=== PATIENT | female | born 1960 | race Hispanic/Latino ===

== ENCOUNTER 2021-07-15 11:37 | Inpatient (IN) | payer OTHER, MEDICARE ==
[~2021-07-15] VITALS: Ht 152.4 cm; Wt 68.9 kg
[2021-07-15] MEDS ORDERED: ZOSYN 3.375GM+NS 50ML 50 ML IV STA (11:40)
[2021-07-15] MEDS ORDERED: VANCOMYCIN 1G VIAL IVPB ONE (12:00)
[2021-07-15] MEDS ORDERED: 0.9%NACL 1000ML 1,000 ML IV ONE ×2 (12:00→13:08)
[2021-07-15 12:39] LABS: BASOPHILS % (AUTO) 0.3 % (0.0-5.0); EOSINOPHILS % (AUTO) 0.9 % (0.0-8.0); HEMATOCRIT 40.3 % (36-48); LYMPHOCYTES % (AUTO) 8.8 % (21.0-51.0); MEAN CORPUSCULAR HEMOGLOBIN 30.4 pg (27.0-33.0); MEAN CORPUSCULAR HGB CONC 33.7 g/dL (32.0-36.0); MONOCYTES % (AUTO) 5.6 % (3.0-13.0); PLATELET COUNT (AUTO) 187 K/uL (130-400); RED BLOOD CELL COUNT(AUTO) 4.48 MIL/uL (4.00-5.50); WHITE BLOOD COUNT (AUTO) 14.2 K/uL (4.8-10.8)
[2021-07-15 13:02] LABS: CREATININE 0.7 mg/dL (0.5-1.5); POTASSIUM 4.9 mmol/L (3.5-5.1)
[2021-07-15 13:07] LABS: ALBUMIN 3.4 g/dL (3.5-5.0); BILIRUBIN,TOTAL 0.4 mg/dL (0.2-1.0); TOTAL PROTEIN, SERUM 7.1 g/dL (6.0-8.3)
[2021-07-15] MEDS ORDERED: ZOSYN 3.375GM+NS 50ML 50 ML ONE (13:07)
[2021-07-15] MEDS ORDERED: 0.9%NACL 50ML 50 ML IV ONE (13:08)
[2021-07-15] MEDS ORDERED: ACETAMINOPHEN 325 MG TAB PO PRN (15:30)
[2021-07-15] MEDS ORDERED: HYDRALAZINE 20MG/ML VIAL IV PRN (15:30)
[2021-07-15] MEDS ORDERED: VANCOMYCIN PROTOCOL PER PHARMACY IV PRN (15:30)
[2021-07-15] MEDS ORDERED: ONDANSETRON 4MG INJ IV PRN (15:30)
[2021-07-15] MEDS: ACETAMINOPHEN 325 MG TAB PO PRN (16:57)
[2021-07-15] MEDS ORDERED: 0.9%NACL 100ML 100 ML ONE (17:01)
[2021-07-15] MEDS: 0.9%NACL 1000ML 1,000 ML IV SCH (17:27)
[2021-07-15] MEDS: CEFEPIME HCL 2 GM VIAL IVP SCH ×2 (17:28→23:02)
[2021-07-15] MEDS: INSULIN HUMULIN R 100 UNIT/ML 3ML SQ SCH ×2 (20:03→21:00)
[2021-07-15] MEDS: VANCOMYCIN 1G/250ML KIT 250 ML IV SCH (21:12)
[2021-07-15] MEDS: PANTOPRAZOLE 40 MG/VIAL IVP SCH (21:18)
[2021-07-15] MEDS ORDERED: INSU100I13 SQ ×2 (21:45→21:48)
[2021-07-15] MEDS ORDERED: GABA-529 PO (21:50)
[2021-07-15] MEDS ORDERED: SITA1TAB6 PO (21:50)
[2021-07-15] MEDS ORDERED: OMEP20CA12 PO (21:55)
[2021-07-15] MEDS ORDERED: CYCL-309 PO (21:55)
[2021-07-15] MEDS ORDERED: OXYB5TAB15 PO (21:55)
[2021-07-15] MEDS ORDERED: DULO30CA52 PO (21:58)
[2021-07-15] MEDS ORDERED: LISI20TA24 PO (22:03)
[2021-07-15] MEDS ORDERED: ATOR20TA65 PO (22:03)
[2021-07-15] MEDS: METRONIDAZOLE 500MG/100ML BAG 100 ML IVPB SCH (23:12)
[2021-07-16] VITALS (7 sets, daily range): BP systolic 126–148; BP diastolic 51–70
[2021-07-16] MEDS: ACETAMINOPHEN 325 MG TAB PO PRN ×2 (03:28→11:37)
[2021-07-16] MEDS: 0.9%NACL 1000ML 1,000 ML IV SCH ×2 (05:59→16:35)
[2021-07-16] MEDS: METRONIDAZOLE 500MG/100ML BAG 100 ML IVPB SCH ×3 (05:59→22:13)
[2021-07-16] MEDS: CEFEPIME HCL 2 GM VIAL IVP SCH ×3 (06:02→22:16)
[2021-07-16 06:08] LABS: APPEARANCE,URINE Clear (CLEAR); BILIRUBIN,URINE Negative (NEGATIVE); COLOR,URINE Yellow (YELLOW); GLUCOSE, URINE (UA) Negative (NEGATIVE); KETONES,URINE Negative (NEGATIVE); LEUKOCYTE ESTERASE ,URINE Negative (NEGATIVE); NITRATE,URINE Negative (NEGATIVE); OCCULT BLOOD,URINE Negative (NEGATIVE); PH,URINE 5.5 (5.0-8.0); PROTEIN,URINE Negative (NEGATIVE); UROBILINOGEN,URINE 0.2 mg/dL (0.2-1.0)
[2021-07-16 06:37] LABS: BASOPHILS % (AUTO) 0.3 % (0.0-5.0); EOSINOPHILS % (AUTO) 1.6 % (0.0-8.0); HEMATOCRIT 35.8 % (36-48); LYMPHOCYTES % (AUTO) 17.4 % (21.0-51.0); MEAN CORPUSCULAR HEMOGLOBIN 30.7 pg (27.0-33.0); MEAN CORPUSCULAR HGB CONC 33.2 g/dL (32.0-36.0); MEAN CORPUSCULAR VOLUME 92.3 fL (79-99); NEUTROPHILS % (AUTO) 72.4 % (40.0-77.0); PLATELET COUNT (AUTO) 173 K/uL (130-400); RED BLOOD CELL COUNT(AUTO) 3.88 MIL/uL (4.00-5.50); RED CELL DISTRIBUTION WIDTH 12.1 % (11.0-15.5); WHITE BLOOD COUNT (AUTO) 9.3 K/uL (4.8-10.8)
[2021-07-16 06:44] LABS: CREATININE 0.6 mg/dL (0.5-1.5); POTASSIUM 3.8 mmol/L (3.5-5.1)
[2021-07-16] MEDS: INSULIN HUMULIN R 100 UNIT/ML 3ML SQ SCH ×4 (06:47→22:03)
[2021-07-16] MEDS: VANCOMYCIN 1G/250ML KIT 250 ML IV SCH ×2 (08:45→20:36)
[2021-07-16] MEDS: PANTOPRAZOLE 40 MG/VIAL IVP SCH (08:45)
[2021-07-16] MEDS: ENOXAPARIN SODIUM 40 MG/0.4 ML SYRINGE SQ SCH (08:46)
[2021-07-16] MEDS ORDERED: CYCLOBENZAPRINE HCL 10 MG TABLET PO PRN (09:30)
[2021-07-16] MEDS: ATORVASTATIN 20 MG TABLET PO SCH (11:37)
[2021-07-16] MEDS: NEOMY SULF/BACITRA/POLYMYXIN B 1 EACH PACKET TP SCH (13:00)
[2021-07-16] MEDS: GABAPENTIN 100 MG CAPSULE PO SCH ×2 (14:26→20:35)
[2021-07-16] MEDS ORDERED: 0.9% NACL 250ML 250 ML ONE (20:32)
[2021-07-16] MEDS: DULOXETINE HCL 30 MG CAP PO SCH (20:36)
[2021-07-16] MEDS: LISINOPRIL 20 MG TABLET PO SCH (20:36)
[2021-07-16] MEDS: INSULIN GLARGINE 100 UNITS/ML 10 ML VIAL SQ SCH (22:04)
[2021-07-17 04:00] VITALS: BP 152/73
[2021-07-17] MEDS: METRONIDAZOLE 500MG/100ML BAG 100 ML IVPB SCH ×3 (05:26→23:07)
[2021-07-17] MEDS: 0.9%NACL 1000ML 1,000 ML IV SCH ×2 (05:58→20:13)
[2021-07-17] MEDS: INSULIN HUMULIN R 100 UNIT/ML 3ML SQ SCH ×4 (05:59→21:00)
[2021-07-17] MEDS: CEFEPIME HCL 2 GM VIAL IVP SCH ×3 (06:12→23:07)
[2021-07-17 07:49] LABS: BASOPHILS % (AUTO) 0.4 % (0.0-5.0); EOSINOPHILS % (AUTO) 2.1 % (0.0-8.0); HEMATOCRIT 34.9 % (36-48); MEAN CORPUSCULAR HGB CONC 33.2 g/dL (32.0-36.0); MEAN CORPUSCULAR VOLUME 90.2 fL (79-99); MONOCYTES % (AUTO) 6.7 % (3.0-13.0); NEUTROPHILS % (AUTO) 77.4 % (40.0-77.0); PLATELET COUNT (AUTO) 174 K/uL (130-400); RED BLOOD CELL COUNT(AUTO) 3.87 MIL/uL (4.00-5.50); RED CELL DISTRIBUTION WIDTH 11.9 % (11.0-15.5); WHITE BLOOD COUNT (AUTO) 6.8 K/uL (4.8-10.8)
[2021-07-17 07:57] LABS: CREATININE 0.4 mg/dL (0.5-1.5); CRP QUANTITATIVE 80.5 mg/L (0.00-9.0)
[2021-07-17 08:00] VITALS: BP 134/73
[2021-07-17] MEDS ORDERED: COMPOUND IV REFRIGERATED 1 EACH IVSOLN MISC PRN (08:30)
[2021-07-17] MEDS: PANTOPRAZOLE 40 MG TAB DR PO SCH (10:20)
[2021-07-17] MEDS: NEOMY SULF/BACITRA/POLYMYXIN B 1 EACH PACKET TP SCH (10:20)
[2021-07-17] MEDS: ACETAMINOPHEN 325 MG TAB PO PRN ×2 (10:21→20:14)
[2021-07-17] MEDS: OXYBUTYNIN CHLORIDE 5 MG TABLET PO SCH (10:21)
[2021-07-17] MEDS: ENOXAPARIN SODIUM 40 MG/0.4 ML SYRINGE SQ SCH (10:22)
[2021-07-17] MEDS: GABAPENTIN 100 MG CAPSULE PO SCH ×3 (10:35→20:12)
[2021-07-17] MEDS: VANCOMYCIN 1.25GM/NS 250ML IVPB SCH ×4 (10:48→20:12)
[2021-07-17] MEDS: ATORVASTATIN 20 MG TABLET PO SCH (11:58)
[2021-07-17 12:00] VITALS: BP 128/59
[2021-07-17 16:00] VITALS: BP 130/60
[2021-07-17] MEDS: DULOXETINE HCL 30 MG CAP PO SCH (20:12)
[2021-07-17] MEDS: LISINOPRIL 20 MG TABLET PO SCH (20:12)
[2021-07-17 21:01] VITALS: BP 138/69
[2021-07-17] MEDS: INSULIN GLARGINE 100 UNITS/ML 10 ML VIAL SQ SCH (21:58)
[2021-07-18] VITALS: BP 154/69
[2021-07-18 04:55] VITALS: BP 158/59
[2021-07-18] MEDS: METRONIDAZOLE 500MG/100ML BAG 100 ML IVPB SCH (06:26)
[2021-07-18] MEDS: CEFEPIME HCL 2 GM VIAL IVP SCH (06:26)
[2021-07-18] MEDS: INSULIN HUMULIN R 100 UNIT/ML 3ML SQ SCH ×2 (06:27→11:58)
[2021-07-18 06:43] LABS: BASOPHILS % (AUTO) 0.4 % (0.0-5.0); EOSINOPHILS % (AUTO) 2.5 % (0.0-8.0); LYMPHOCYTES % (AUTO) 18.2 % (21.0-51.0); MEAN CORPUSCULAR HEMOGLOBIN 30.4 pg (27.0-33.0); MEAN CORPUSCULAR HGB CONC 33.6 g/dL (32.0-36.0); MEAN CORPUSCULAR VOLUME 90.5 fL (79-99); MONOCYTES % (AUTO) 7.1 % (3.0-13.0); NEUTROPHILS % (AUTO) 71.5 % (40.0-77.0); PLATELET COUNT (AUTO) 195 K/uL (130-400); RED BLOOD CELL COUNT(AUTO) 3.98 MIL/uL (4.00-5.50); RED CELL DISTRIBUTION WIDTH 11.9 % (11.0-15.5); WHITE BLOOD COUNT (AUTO) 6.8 K/uL (4.8-10.8)
[2021-07-18 06:54] LABS: CREATININE 0.4 mg/dL (0.5-1.5)
[2021-07-18 08:23] VITALS: BP 151/64
[2021-07-18] MEDS: VANCOMYCIN 1.25GM/NS 250ML IVPB SCH ×2 (10:12)
[2021-07-18] MEDS: OXYBUTYNIN CHLORIDE 5 MG TABLET PO SCH (10:12)
[2021-07-18] MEDS: PANTOPRAZOLE 40 MG TAB DR PO SCH (10:12)
[2021-07-18] MEDS: GABAPENTIN 100 MG CAPSULE PO SCH (10:12)
[2021-07-18] MEDS: ENOXAPARIN SODIUM 40 MG/0.4 ML SYRINGE SQ SCH (10:13)
[2021-07-18] MEDS: ATORVASTATIN 20 MG TABLET PO SCH (11:58)
[2021-07-18 12:07] VITALS: BP 155/61
[2021-07-18] MEDS: NEOMY SULF/BACITRA/POLYMYXIN B 1 EACH PACKET TP SCH (13:10)
== END 2021-07-18 14:00 | disposition left against medical advice (07) | DRG 638 ==
LOC: EDH 11:37 → EDHIP 15:11 → 3AH 22:44
PROVIDERS: ADMIT Internal Medicine; ATTEND Internal Medicine
DX: E11.69 Type 2 diabetes mellitus with other specified complication (principal); M86.9 Osteomyelitis, unspecified; L02.612 Cutaneous abscess of left foot; L02.611 Cutaneous abscess of right foot; L03.116 Cellulitis of left lower limb; L03.115 Cellulitis of right lower limb; E11.621 Type 2 diabetes mellitus with foot ulcer; I10 Essential (primary) hypertension; E78.5 Hyperlipidemia, unspecified; F32.A Depression, unspecified; M19.90 Unspecified osteoarthritis, unspecified site; E78.00 Pure hypercholesterolemia, unspecified; E11.65 Type 2 diabetes mellitus with hyperglycemia; M81.0 Age-related osteoporosis without current pathological fracture; M21.372 Foot drop, left foot; L84 Corns and callosities; R53.81 Other malaise; E66.9 Obesity, unspecified; L97.529 Non-pressure chronic ulcer of other part of left foot with unspecified severity; Z68.27 Body mass index [BMI] 27.0-27.9, adult; Z90.710 Acquired absence of both cervix and uterus; Z91.19 Patient's noncompliance with other medical treatment and regimen; Z83.3 Family history of diabetes mellitus; Z20.822 Contact with and (suspected) exposure to COVID-19
CPT/HCPCS: 36415; 73630; 73700; 73718; 80048; 80053; 80202; 81003; 82550; 82948; 83036; 83605; 84145; 85025; 85651; 86140; 87040; 87070; 87077; 87186; 87635; 87804; 93925; 93970; C9113; C9803; G0378; J0692; J1650; J1815; J2543; J3370; J3490; J7030; J7050

== ENCOUNTER → 2022-01-18 | Outpatient (CLI) | payer OTHER, MEDICARE ==
[~2022-01-18] MED LIST: ATOR20TA65 PO; CYCL-309 PO; DULO30CA52 PO; GABA-529 PO; INSU100I13 SQ; LISI20TA24 PO; OMEP20CA12 PO; OXYB5TAB15 PO; SITA1TAB6 PO
== END | disposition home or self-care (01) ==
LOC: CANPRECLI → RAH 12:42
PROVIDERS: ATTEND Otolaryngology Plastic Surgery within the Head & Neck
DX: R22.1 Localized swelling, mass and lump, neck (principal)
CPT/HCPCS: 76536

== ENCOUNTER → 2022-02-17 | Outpatient (CLI) | payer OTHER, MEDICARE ==
[2022-02-17 09:27] LABS: INR 0.93 (0.85-1.15)
[2022-02-17 09:28] LABS: PARTIAL THROMBOPLASTIN TIME 26.8 SEC (26.3-35.5)
== END | disposition home or self-care (01) ==
LOC: RAH 08:28
PROVIDERS: ATTEND Otolaryngology Plastic Surgery within the Head & Neck
DX: D11.0 Benign neoplasm of parotid gland (principal); R59.0 Localized enlarged lymph nodes; Z79.899 Other long term (current) drug therapy; Z79.01 Long term (current) use of anticoagulants; Z98.890 Other specified postprocedural states
CPT/HCPCS: 36415; 38505; 76942; 85610; 85730; 88184; 88185; 88305; 88341; 88342

== ENCOUNTER 2023-11-25 14:09 | Emergency (ER) | payer OTHER ==
[~2023-11-25] VITALS: Ht 162.6 cm; Wt 56.7 kg
[~2023-11-25 14:09] MED LIST changes: +ASPI-1443 PO; -ATOR20TA65 PO; +ATOR40TA71 PO; -DULO30CA52 PO; -GABA-529 PO; -INSU100I13 SQ; -LISI20TA24 PO; -OMEP20CA12 PO; -OXYB5TAB15 PO; +OXYB5TAB20 PO; +RIVA2.5T PO; -SITA1TAB6 PO
[2023-11-25] MEDS: ONDANSETRON 4MG INJ IVP ONE (15:02)
[2023-11-25] MEDS: MORPHINE 4 MG SYG IVP ONE (15:03)
[2023-11-25] MEDS: PROPOFOL 10 MG/ML 20ML VIAL IV STA (15:29)
[2023-11-25] MEDS ORDERED: ACET-66 PO (16:14)
[2023-11-25 16:41] VITALS: BP 141/74; PULSE 78; RESP 18; O2SAT 98
== END 2023-11-25 16:44 | disposition home or self-care (01) ==
LOC: EDH 14:09
DX: S52.502A Unspecified fracture of the lower end of left radius, initial encounter for closed fracture (principal); S52.602A Unspecified fracture of lower end of left ulna, initial encounter for closed fracture; E78.00 Pure hypercholesterolemia, unspecified; I10 Essential (primary) hypertension; Z90.710 Acquired absence of both cervix and uterus; W18.39XA Other fall on same level, initial encounter; Y93.89 Activity, other specified; Y92.89 Other specified places as the place of occurrence of the external cause; Y99.8 Other external cause status
CPT/HCPCS: 25605; 99285; 73090; 73110; 99152; 96374; 96375; J2704; J2405; J2270; 29799; J3490